=== PATIENT | female | born 1965 | race Caucasian/White ===

== ENCOUNTER 2020-07-18 19:12 | Inpatient (IN) | payer OTHER ==
[2020-07-18 20:14] LABS: BASOPHIL 0.7 % (0-2); EOSINOPHIL 0.1 % (0-5); HCT 42.1 % (37.0-47.0); LYMPHOCYTE 14.5 % (15-48); MCH 29.6 pg (25.0-31.0); MCHC 33.3 g/dL (32.0-36.0); MONOCYTE 6.4 % (0-12); MPV 9.3 fL (6.0-9.5); NEUTROPHIL 77.7 % (41-80); NRBC 0; PLT 251 K/uL (150-400); RBC 4.73 M/uL (4.20-5.40); RDW 14.3 % (11.5-14.0); WBC 9.8 K/uL (4.0-10.5)
[2020-07-18 20:36] LABS: ALBUMIN 3.4 g/dL (3.4-5.0); BILIRUBIN - TOTAL 0.6 mg/dL (0.2-1.0); CREATININE 0.83 mg/dL (0.51-0.95); GLOBULIN (CALCULATION) 4.1 g/dL; POTASSIUM 3.6 mmol/L (3.5-5.1); TOTAL PROTEIN 7.5 g/dL (6.4-8.2)
[2020-07-18 20:41] LABS: CORONAVIRUS 2019 SARS-COV-2 POSITIVE (NEGATIVE); INFLUENZA A NAA NEGATIVE (NEGATIVE)
[2020-07-18 20:45] LABS: PRO-BNP 39 pg/mL (<125)
[2020-07-18 20:46] LABS: LACTIC ACID 0.9 mmol/L (0.4-1.9)
[2020-07-19 02:14] LABS: BILIRUBIN NEGATIVE (NEGATIVE); BLOOD NEGATIVE Ery/uL (NEGATIVE); CLARITY CLEAR (CLEAR); COLOR YELLOW (YELLOW); GLUCOSE (U) NORMAL (NORMAL); LEUKOCYTES NEGATIVE Leu/uL (NEGATIVE); NITRITE NEGATIVE (NEGATIVE); PROTEIN NEGATIVE (NEGATIVE); SPECIFIC GRAVITY <=1.005 (1.001-1.030); UROBILINOGEN 0.2 mg/dL (0.2-1.0); pH 6.5 (5.0-9.0)
[2020-07-19] MEDS ORDERED: ZYRTEC10 M3 PO (12:56)
[2020-07-19] MEDS ORDERED: DETROL LA2 MG PO (12:57)
[2020-07-19] MEDS ORDERED: PROVENTIL HFA6.7 GM INH (13:06)
[2020-07-20 01:12] LABS: BASOPHIL 0.2 % (0-2); EOSINOPHIL 0 % (0-5); HCT 38.7 % (37.0-47.0); HGB 12.9 g/dl (12.5-16.0); LYMPHOCYTE 15.6 % (15-48); MCH 30.1 pg (25.0-31.0); MCHC 33.3 g/dL (32.0-36.0); MCV 90.2 fL (78.0-100.0); MONOCYTE 6.8 % (0-12); MPV 9.9 fL (6.0-9.5); NEUTROPHIL 76.6 % (41-80); NRBC 0; PLT 243 K/uL (150-400); RBC 4.29 M/uL (4.20-5.40); RDW 14.3 % (11.5-14.0); WBC 6.5 K/uL (4.0-10.5)
[2020-07-20 01:37] LABS: ALBUMIN 2.7 g/dL (3.4-5.0); BILIRUBIN - TOTAL 0.2 mg/dL (0.2-1.0); BUN/CREAT RATIO (CALC) 14.1 RATIO; C-REACTIVE PROTEIN 7.9 mg/dL (<=0.90); CREATININE 0.71 mg/dL (0.51-0.95); GLOBULIN (CALCULATION) 4.3 g/dL
[2020-07-21 05:44] LABS: BASOPHIL 0.3 % (0-2); EOSINOPHIL 0 % (0-5); HCT 38.9 % (37.0-47.0); HGB 12.8 g/dl (12.5-16.0); LYMPHOCYTE 21.4 % (15-48); MCH 29.6 pg (25.0-31.0); MCHC 32.9 g/dL (32.0-36.0); MONOCYTE 6.6 % (0-12); MPV 10.2 fL (6.0-9.5); NEUTROPHIL 70.9 % (41-80); NRBC 0; PLT 249 K/uL (150-400); RBC 4.32 M/uL (4.20-5.40); RDW 14.1 % (11.5-14.0); WBC 7.3 K/uL (4.0-10.5)
[2020-07-21 06:08] LABS: ALBUMIN 2.6 g/dL (3.4-5.0); BILIRUBIN - TOTAL 0.1 mg/dL (0.2-1.0); BUN/CREAT RATIO (CALC) 19.7 RATIO; CREATININE 0.66 mg/dL (0.51-0.95); GLOBULIN (CALCULATION) 4.2 g/dL; POTASSIUM 4.3 mmol/L (3.5-5.1); TOTAL PROTEIN 6.8 g/dL (6.4-8.2)
[2020-07-22 03:58] LABS: BASOPHIL 0.4 % (0-2); EOSINOPHIL 0.1 % (0-5); HCT 39.5 % (37.0-47.0); HGB 12.8 g/dl (12.5-16.0); LYMPHOCYTE 26.9 % (15-48); MCH 29.8 pg (25.0-31.0); MCHC 32.4 g/dL (32.0-36.0); MCV 91.9 fL (78.0-100.0); MONOCYTE 8.9 % (0-12); NEUTROPHIL 62.2 % (41-80); NRBC 0; PLT 273 K/uL (150-400); RDW 14.4 % (11.5-14.0)
[2020-07-22 04:45] LABS: ALBUMIN 2.7 g/dL (3.4-5.0); BILIRUBIN - TOTAL 0.2 mg/dL (0.2-1.0); C-REACTIVE PROTEIN 2.6 mg/dL (<=0.90); CREATININE 0.62 mg/dL (0.51-0.95); POTASSIUM 3.9 mmol/L (3.5-5.1); TOTAL PROTEIN 6.7 g/dL (6.4-8.2)
[2020-07-23] MEDS ORDERED: VITAMIN D325 MC1 PO (08:13)
[2020-07-23] MEDS ORDERED: DEXAMETHASONE 2M2 MG PO (08:13)
[2020-07-23] MEDS ORDERED: VITAMIN B-1100 M1 PO (08:13)
[2020-07-23] MEDS ORDERED: TESSALON PERLE100 MG PO (08:13)
[2020-07-23] MEDS ORDERED: ZINC SULFATE50 MG PO (08:13)
[2020-07-23] MEDS ORDERED: ASCORBIC ACID500 MG PO (08:13)
[2020-07-23] MEDS ORDERED: ADVAIR HFA 230-28 GM INH (08:14)
--- NOTE | 2020-07-23 09:37 | NUR ---
07/23/20 Ms. Leblanc shares a home with her boyfriend. She was independent in the home and community prior to admission. A referral was made to [facility] for home 02. No HH is needed per Dr. See. Report given to MS WEN Collier.
== END 2020-07-23 10:49 | disposition home or self-care (01) | DRG 177 ==
LOC: FER 19:12 → FMS 23:48
PROVIDERS: Emergency Medicine Emergency Medical Services; Internal Medicine; ADMIT Hospitalist
PROC: 8E0ZXY6 Isolation (ICD-10-PCS; principal; 2020-07-19)
PROC: XW033E5 Introduction of Remdesivir Anti-infective into Peripheral Vein, Percutaneous Approach, New Technology Group 5 (ICD-10-PCS; 2020-07-19)
DX: U07.1 COVID-19 (principal); J12.82 Pneumonia due to coronavirus disease 2019; J96.01 Acute respiratory failure with hypoxia; J45.901 Unspecified asthma with (acute) exacerbation; K21.9 Gastro-esophageal reflux disease without esophagitis; Z99.81 Dependence on supplemental oxygen; Z88.2 Allergy status to sulfonamides; Z90.710 Acquired absence of both cervix and uterus; Z96.611 Presence of right artificial shoulder joint; Z56.0 Unemployment, unspecified; R50.9 Fever, unspecified; R53.1 Weakness; Z90.49 Acquired absence of other specified parts of digestive tract; Z91.040 Latex allergy status
CPT/HCPCS: 36415; 36600; 71045; 71275; 80053; 81003; 82150; 82728; 82803; 83605; 83880; 84145; 84484; 85025; 85379; 86140; 87040; 87088; 93005; 94010; 94640; 94762; C9399; J1650; J1885; J2270; J2405; J2543; J7050; J7120; J8540; Q9967; U0002